=== PATIENT | male | born 1940 | race Caucasian/White ===

== ENCOUNTER 2017-03-21 10:24 | Emergency (ER) | payer MEDICAID ==
[2017-03-21] MEDS ORDERED: Dextrose 50% 50 mL Abboject IVP ONE (10:42)
--- NOTE | 2017-03-21 10:50 | ED Physician Chart ---
ED Chief Complaint/HPI - Patient Information Date Seen:: 03/21/17 Time Seen:: 10:50 Chief Complaint:: Hypoglycemia History of Present Illness:: 76 yo male was brought to ER by family member due to low blood glucose level at 57 which was detected at his physician's office. Prior to the physician's office visit, the patient had nausea, vomiting, epigastric pain and poor oral intake. ED Review of Systems - Review of Systems General/Constitutional: No fever, No chills Skin: No skin lesions Head: No headache Neck: No neck pain Cardio Vascular: No chest pain Pulmonary: No SOB GI: Nausea, Vomiting, Pain Musculoskeletal: No bone or joint pain ED Past Medical History - Past Medical History Past Medical History: HTN, DM, Thyroid disorder Social History: Non Smoker, No Alcohol, No Drug Use Surgical History: None Family Medical History - Family Member Son Ethnicity: Hx Family Cancer: No Hx Family Coronary Artery Disease: No Hx Family Congestive Heart Failure: No Hx Family Stroke: No Hx Family Diabetes: No Hx Family HIV: No Hx Family COPD: No Hx Family Psychiatric Problems: No Hx Family Tuberculosis: No ED Physical Exam - Physical Examination General/Constitutional: Awake, Alert Head: Atraumatic Eyes: PERRL, EOMI Skin: No skin lesions ENMT: Nasal exam nl Neck: No nuchal rigidity Respiratory: Clear to Auscultation, No Wheeze/Rhonchi/Rales Cardio Vascular: RRR, No murmur, gallop, rubs, NL S1 S2 GI: Nondistended Extremities: normal strength in all extremities Neuro/Psych: No focal deficits ED Labs/Radiology/EKG Results - Lab Results Results: Laboratory Tests 03/21/17 10:30 POC Glucose 55 L ED Assessment - Assessment General Assessment: 76 yo male has episode of hypoglycemia. DM II and hypertension. Critical Care Time: 30 min Excludes all billable procedures: Yes This condition life threatening/high prob of deterioration: No Assessment/Comments:: 50% Dextrose CBC, CMP D/c glyburide Continue metformin F/u PCP ED Septic Shock - . Is Septic Shock (SBP<90, OR Lactate>4 mmol\L) present?: No ED Reassessment (Disposition) - Reassessment Reassessment Condition:: Improved - Aftercare/Follow up Instructions Aftercare/Follow-Up Instructions:: Counseled pt regarding lab results/diagnosis & need follow up, Refer to Discharge Instructions - Patient Disposition Discharge/Transfer:: Home ED Discharge Plan - Patient Disposition Admit/Discharge/Transfer: PT DISCHARGED HOME Condition at Disposition: Improved Instructions: Hypoglycemia (Low Blood Sugar) Additional Instructions: please stop the GLyburide per ER MD orders. and have your PMD look and possibly adjust the Metformin
[2017-03-21] MEDS ORDERED: Dextrose 50% 50 mL Abboject IVP STA (10:52)
[2017-03-21 11:08] LABS: % EOSINOPHILS 0.2 % (0.0-5.0); % MONOCYTES 8.6 % (2.0-10.0); % NEUTROPHILS 87.2 % (40.0-80.0); HEMATOCRIT 45.8 % (41.0-60); HEMOGLOBIN 14.8 gm/dL (12-16); MEAN CELL VOLUME 93.6 fl (80-99); MEAN CORPUSCULAR HEMOGLOBIN 30.3 pg (27.0-31.0); MEAN CORPUSCULAR HGB CONC 32.3 pg (28.0-36.0); MEAN PLATELET VOLUME 7.4 fl; NEUTROPHILE ABSOLUTE 8.2 Th/cmm (1.8-8.0); PLATELET COUNT 179 Th/cmm (150-400); RED BLOOD COUNT 4.89 Mil/cmm (3.80-5.80); RED CELL DISTRIBUTION WIDTH 13.9 % (11.5-20.0); WHITE BLOOD COUNT 9.4 Th/cmm (4.8-10.8)
[2017-03-21 11:20] VITALS: BP 132/71
[2017-03-21 11:31] LABS: ALKALINE PHOSPHATASE 215 U/L (34-104); ANION GAP 8.3 (7.0-16.0); BILIRUBIN,TOTAL 5.5 mg/dL (0.3-1.0); BUN - UREA NITROGEN 25 mg/dL (7-25); CALCIUM SERUM 9.3 mg/dL (8.6-10.3); CARBON DIOXIDE 30.1 mEq/L (21.0-31.0); CHLORIDE 100 mEq/L (98-107); GLUCOSE 152 mg/dL (70-105); POTASSIUM SERUM 3.4 mEq/L (3.5-5.1); SGOT 202 U/L (13-39); SGPT/ALT 273 U/L (7-52); SODIUM SERUM 135 mEq/L (136-145)
== END 2017-03-21 13:22 | disposition home or self-care (01) ==
LOC: EDSEX 10:24 → ER 10:24
DX: E11.649 Type 2 diabetes mellitus with hypoglycemia without coma (principal); I10 Essential (primary) hypertension; E07.9 Disorder of thyroid, unspecified
CPT/HCPCS: 36415-UA; 80053-TC; 82948-90; 83036-90; 85007-TC; 85027-TC; 96374; J7799; Z7502; Z7610